=== PATIENT | male | born 1960 | race Caucasian/White ===

== ENCOUNTER 2020-10-15 08:59 | Day surgery (SDC) | payer BC ==
[~2020-10-15] VITALS: Ht 172.7 cm; Wt 80.6 kg
[~2020-10-15 08:59] MED LIST: AMLO5 PO; ATORVASTATIN CA40 MG PO; Cymbalta60 MG; ESOM20 PO; Hair, Skin & N1 EACH PO; LOSA50; LOSA50 PO; VOLTAREN ARTHRI20 GM TOP; Voltaren100 GM
== END 2020-10-15 10:58 | disposition home or self-care (01) ==
LOC: ORSCSDS 08:59
PROVIDERS: Orthopaedic Surgery
PROC: 01N50ZZ Release Median Nerve, Open Approach (ICD-10-PCS; principal; 2020-10-15 10:15)
DX: G56.01 Carpal tunnel syndrome, right upper limb (principal); I12.9 Hypertensive chronic kidney disease with stage 1 through stage 4 chronic kidney disease, or unspecified chronic kidney disease; N18.2 Chronic kidney disease, stage 2 (mild); Z79.899 Other long term (current) drug therapy
CPT/HCPCS: J1885; J2250; J2704; J3010